=== PATIENT | male | born 1975 | race American Indian/Alaskan Native ===

== ENCOUNTER 2017-08-31 04:05 | Emergency (ER) | payer OTHER ==
--- NOTE | 2017-08-31 07:13 | XRay Report ---
FINAL REPORT EXAM: XR HAND 2V LT HISTORY: left hand pain and swelling/ on the job injury COMPARISONS: None. FINDINGS: AP and lateral views left hand No bone lesion, periosteal reaction, or fracture. No deformity or gross malalignment. IMPRESSION: No fracture or gross malalignment identified in the left hand.
--- NOTE | 2017-08-31 07:17 | Emergency Department Report ---
Upper Extremity - HPI Chief Complaint: Extremity Injury, Lower Stated Complaint: LT HAND PAIN Time Seen by Provider: 08/31/17 07:07 Upper Extremity: Left Hand (left hand pain after injury) Occurred When: Today Mechanism: Crush Severity: severe Symptoms: Yes Pain with Movement (left hand), Yes Limited Range of Movement ( aft hand), Yes Swelling (left hand), No Deformity, No Numbness, No Weakness, No Bruising/Ecchymosis, No Laceration or Abrasion Other History: Patient reports that he injured his left hand at work today. He said his left hand got pinned between dates from light [place] in bumper on truck. Reports pain in that a 10 and throbbing. Reports radiation of pain to his left forearm when it initially happened but not now. No medication taken for pain. Pain is worse with movement better with rest. Denies any numbness or tingling at present. ED Review of Systems ROS: Stated complaint: LT HAND PAIN Other details as noted in HPI Comment: All other systems reviewed and negative Constitutional: no symptoms reported Respiratory: no symptoms reported Cardiovascular: denies: chest pain, palpitations, dyspnea on exertion, edema, syncope, paroxysmal nocturnal dyspnea Gastrointestinal: denies: abdominal pain, nausea, vomiting Musculoskeletal: joint swelling, arthralgia. denies: back pain, myalgia Skin: denies: rash Neurological: denies: headache, numbness, paresthesias, confusion, abnormal gait , vertigo ED Past Medical Hx - Past Medical History Previous Medical History?: No - Surgical History Past Surgical History?: Yes Additional Surgical History: hernia - Family History Family history: hypertension - Social History Smoking Status: Never Smoker Substance Use Type: Alcohol - Medications Home Medications: Home Medications Medication Instructions Recorded Confirmed Last Taken Type Ibuprofen [Motrin] 600 mg PO Q8H PRN #15 tablet 08/31/17 Unknown Rx Upper Extremity Exam - Exam General: Vital signs noted. No distress. Alert and acting appropriately. This is a 42-year-old male well-nourished well-developed in no acute distress Head and Torso: No HEENT Abnormality (head normocephalic, atraumatic,), No Neck Tenderness (neck supple, full range of motion and no C-spine tenderness), No Chest/Lungs Abnormality (CTAB. Chest wall tenderness), No Abdominal Tenderness (nontender to palpate in all quadrants. Normal bowel sounds), No Back Tenderness (no vertebral tenderness or paraspinal tenderness. Ambulates without difficulties) Shoulder Exam: Yes Normal Range of Motion in Shoulder, No Shoulder Tenderness, No Clavicle Tenderness, No Shoulder Deformity, No AC Joint Tenderness Arm Exam: No Arm/Humerus Tenderness, No Arm Deformity Elbow: Yes Normal Range of Motion in Elbow, No Elbow Tenderness, No Elbow Deformity Forearm: No Forearm Tenderness, No Forearm Deformity, No Pain with Pronation, No Pain with Supination Wrist: Yes Normal ROM in Wrist, No Wrist Tenderness, No Wrist Deformity, No Snuffbox Tenderness, No Pain with Axial Thumb Compression Hand: Yes Hand Tenderness (hand, tenderness and swelling to the dorsal aspect especially at fourth and fifth metacarpal bone), Yes Digit Tenderness (fourth and fifth finger to left hand), Yes Tendon Dysfunction (patient will good color , sensation, temperature and movement of fingers of left hand.), No Hand Deformity, No Normal ROM in Digit(s) (patient with limited range of motion to left hand due to pain.), No Digit(s) Deformity CMS Exam: Yes Normal Distal Pulses, Yes Normal Capillary Refill, Yes Normal Distal Sensation, No Broken Skin ED Course Vital Signs 08/31/17 04:15 Temperature 97.8 F Pulse Rate 89 Respiratory 18 Rate Blood Pressure 124/88 O2 Sat by Pulse 99 Oximetry - Reevaluation(s) Reevaluation #1: 08/31/17 07:42 Patient given Motrin 800 mg by mouth in emergency room. - Orthopedic Splinting/Casting Injury #1 Side: left Upper Extremity Injury Location: hand Upper Extremity Immobilizer: wrist splint (Velcro wrist splint) Additional Comments: Patient with good neurovascular check status post splint with 2+ and bounding radial ulnar pulses ED Medical Decision Making - Radiology Data Radiology results: report reviewed Left hand x-ray reveals no fracture or dislocation. - Medical Decision Making ED Course This is a 42-year-old male here due to injury to left hand while working. Physical findings for tenderness, swelling and limited range of motion due to pain to left hand. X-ray of left hand reveal no acute fracture dislocation. Patient has no signs of tendon injury. See procedure note for wrist splints. He has good neurovascular check pre-and post-splinting. The patient was given Motrin 800 mg by mouth in emergency room for pain. I discusses x-ray results and diagnosis with him. He voiced understanding. Patient discharged home in stable condition with prescription for Motrin and to follow-up with orthopedic doctor or [employer]men's [employer]. orthopedic doctor and 3 days. Critical care attestation.: If time is entered above; I have spent that time in minutes in the direct care of this critically ill patient, excluding procedure time. ED Disposition Clinical Impression: Left hand pain Injury of left hand Qualifiers: Encounter type: initial encounter Qualified Code(s): S69.92XA - Unspecified injury of left wrist, hand and finger(s), initial encounter Contusion of hand, left Qualifiers: Encounter type: initial encounter Qualified Code(s): S60.222A - Contusion of left hand, initial encounter Disposition: TO HOME OR SELFCARE Is pt being admited?: No Does the pt Need Aspirin: No Condition: Stable Instructions: Hand Sprain (ED), Contusion in Adults (ED), Arthralgia (ED) Additional Instructions: Please follow up with primary care as recommended Increase fluid intake Take medication as prescribed . Referred to discharge instruction in [facility] therapy. follow-up with orthopedic doctor as instructed. Prescriptions: Ibuprofen [Motrin] 600 mg PO Q8H PRN #15 tablet PRN Reason: Pain Referrals: PRIMARY CAREMD [Primary Care Provider] - 09/03/17 REJI CASTRO MD [Staff Physician] - 09/03/17 Forms: Work/School Release Form(ED)
[2017-08-31] MEDS ORDERED: MOTRIN PO ONE (07:20)
[2017-08-31 08:21] VITALS: BP 130/96
== END 2017-08-31 08:21 | disposition home or self-care (01) ==
LOC: ED 04:05
DX: S60.222A Contusion of left hand, initial encounter (principal); I10 Essential (primary) hypertension; Z91.018 Allergy to other foods; S69.92XA Unspecified injury of left wrist, hand and finger(s), initial encounter; W23.1XXA Caught, crushed, jammed, or pinched between stationary objects, initial encounter; Y93.89 Activity, other specified; Y92.89 Other specified places as the place of occurrence of the external cause; Y99.8 Other external cause status
CPT/HCPCS: 99283